=== PATIENT | male | born 1985 ===

== ENCOUNTER 2022-11-12 08:08 | Outpatient (CLI) | payer BC, SELFPAY | END 2022-11-12 08:09 | disposition home or self-care (01) | PROVIDERS: PCP Family Medicine; Visit Provider Family Medicine | DX: Z00.00 Encounter for general adult medical examination without abnormal findings (principal); F90.9 Attention-deficit hyperactivity disorder, unspecified type; Z13.6 Encounter for screening for cardiovascular disorders; Z76.89 Persons encountering health services in other specified circumstances | CPT/HCPCS: 80048; 80061 ==

== ENCOUNTER 2024-09-04 08:05 | Outpatient (CLI) | payer BC, SELFPAY | END 2024-09-04 08:06 | disposition home or self-care (01) | LOC: NFLDREF 09-12 00:02 | PROVIDERS: PCP Family Medicine; Referring Provider Family Medicine; Visit Provider Family Medicine | DX: Z00.00 Encounter for general adult medical examination without abnormal findings (principal); I10 Essential (primary) hypertension; E78.00 Pure hypercholesterolemia, unspecified | CPT/HCPCS: 80048; 80061 ==